=== PATIENT | female | born 1955 | race Caucasian/White ===

== ENCOUNTER 2016-04-26 15:48 | Emergency (ER) | payer OTHER ==
[~2016-04-26 15:48] MED LIST: DENIES HOME MEDS; FLONASE NAS; HYDROCHLOROT25 MG PO; PRIN5 PO; PROVHFA INH; QVAR 80 MCG80 MCG INH
== END 2016-04-26 17:52 | disposition home or self-care (01) ==
LOC: ER 15:48
DX: S89.92XA Unspecified injury of left lower leg, initial encounter (principal); S89.91XA Unspecified injury of right lower leg, initial encounter; S99.912A Unspecified injury of left ankle, initial encounter; S99.911A Unspecified injury of right ankle, initial encounter; S79.911A Unspecified injury of right hip, initial encounter; I10 Essential (primary) hypertension; J44.9 Chronic obstructive pulmonary disease, unspecified; K21.9 Gastro-esophageal reflux disease without esophagitis; E11.9 Type 2 diabetes mellitus without complications; Z88.2 Allergy status to sulfonamides; Z79.899 Other long term (current) drug therapy; W19.XXXA Unspecified fall, initial encounter
CPT/HCPCS: 73502-RT; 73560-50; 73610-LT; 73610-RT; 99284